=== PATIENT | female | born 1985 | race Caucasian/White ===

== ENCOUNTER 2024-01-21 13:34 | Outpatient (CLI) | payer OTHER, SELFPAY ==
--- NOTE | 2024-01-21 13:38 | MM_ITS ---
WS: [id number] BILATERAL 3D TOMOSYNTHESIS DIGITAL DIAGNOSTIC MAMMOGRAPHY WITH CAD CLINICAL INFORMATION: NIPPLE DISCHARGE HISTORY: Bilateral nipple discharge x12 months COMPARISON: Baseline TECHNIQUE: Bilateral CC, MLO, and ML views. FINDINGS: The breasts are composed of heterogeneous fibroglandular density, which can limit the detection of sm all underlying mass lesions. No suspicious focal mass, asymmetry, calcifications, or architectural distortion. Subareolar ultrasou nd bilaterally is pending for nipple discharge ULTRASOUND BREAST BILATERAL TECHNIQUE: Ultrasound bilateral breast focused area of concern. CLINICAL INFORMATION: NIPPLE DISCHARGE FINDINGS: RIGHT BREAST: Subareolar ultrasound. No cystic or solid lesions. No suspicious lesions to target for biopsy. LEFT BREAST: Subareolar ultrasound. No cystic or solid lesions. No suspicious lesions to target for b iopsy. MM/MM diag BI tomosynthesis [id number] IMPRESSION: DENSITY: The breasts are heterogeneously dense, which may obscure small masses. BI-RADS: 2 - Benign FOLLOW UP: 1 Year Follow-up Recommend return to annual screening mammography.
== END 2024-01-21 13:35 | disposition home or self-care (01) ==
LOC: RAD 13:36
PROVIDERS: PCP Family Medicine; Visit Provider Advanced Practice Midwife
DX: R92.333 Mammographic heterogeneous density, bilateral breasts (principal); N64.52 Nipple discharge; N64.4 Mastodynia
CPT/HCPCS: 76642; 77062; G0279